=== PATIENT | female | born 2000 | race Hispanic/Latino ===

== ENCOUNTER 2023-08-28 08:56 | Emergency (ER) | payer OTHER, SELFPAY ==
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
[2023-08-28 09:05] VITALS: BP 110/73; PULSE 79; RESP 16; TEMP 36.3; O2SAT 100; BMI 21.2
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
[2023-08-28] MEDS: SODIUM CHLORIDE 0.9% 1,000 ML 1000 ML IV (11:39)
--- NOTE | 2023-08-28 11:39 | PC.NURSE ---
this RN stopped infusion so patient could go to CT with build technician.
[2023-08-28 11:44] LABS: Add Manual Diff / Slide Review NO; Basophils Absolute Auto 0 /uL (0-100); Basophils Percent Auto 0.6 % (0-2); Eosinophils Absolute Auto 0 /uL (0-450); Eosinophils Percent Auto 0.4 % (2-4); Hematocrit 35.6 % (36-46); Hemoglobin 12.1 g/dL (12.0-16.0); Lymphocytes Absolute Auto 1900 /uL (1100-4500); Lymphocytes Percent Auto 34.8 % (25-40); Mean Corpuscular HGB Conc 33.9 % (30-36); Mean Corpuscular Hemoglobin 28.8 PG (26-34); Monocytes Absolute Auto 600 /uL (0-900); Monocytes Percent Auto 10.8 % (3-14); Neutrophils Absolute Auto 2900 /uL (1500-7000); Neutrophils Percent Auto 53.4 % (50-75); Platelet Count 329 X10^3/uL (150-400); Red Blood Cell Count 4.19 X10^6/uL (4.0-5.2); Red Cell Distribution Width 14.9 % (11.6-14.8); White Blood Cell Count 5.4 X10^3/uL (4.5-11.0)
[2023-08-28 12:01] LABS: Pregnancy Test Serum,Qual Negative (Negative)
[2023-08-28 12:02] LABS: Alanine Aminotransferase 20 IU/L (<35); Albumin 4.2 g/dL (3.5-5.0); Albumin Globulin Ratio 1.4 (1.0-2.8); Alkaline Phosphatase 50 U/L (38-126); Aspartate Aminotransferase 25 IU/L (14-36); BUN Creatinine Ratio 12.3 (6-22); Blood Urea Nitrogen 7 mg/dL (7-17); Calcium 8.7 mg/dL (8.4-10.2); Carbon Dioxide 25 mmol/L (22-32); Chloride 110 mmol/L (98-107); Estimated Glomerular Filt Rate > 60 mL/min (>60); Globulin 3.1 g/dL (1.7-4.1); Glucose 83 mg/dL (70-100); HEMOLYSIS < 15 (0-50); Lipase 56 U/L (23-300); Potassium 3.5 mmol/L (3.4-5.1); Sodium 139 mmol/L (137-145); Total Protein 7.3 g/dL (6.3-8.2)
[2023-08-28 12:08] VITALS: BP 115/74; PULSE 75; RESP 16; TEMP 36.6; O2SAT 100
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
[2023-08-28 13:13] VITALS: BP 109/72; PULSE 79; RESP 16; O2SAT 100
== END 2023-08-28 13:19 | disposition home or self-care (01) ==
PROVIDERS: Emergency Provider Emergency Medicine
DX: S06.0X0A Concussion without loss of consciousness, initial encounter (principal); S90.32XA Contusion of left foot, initial encounter; S80.12XA Contusion of left lower leg, initial encounter; R10.2 Pelvic and perineal pain; M54.2 Cervicalgia; V89.2XXA Person injured in unspecified motor-vehicle accident, traffic, initial encounter
CPT/HCPCS: 36415; 70450; 71275; 72125; 73590; 73630; 74177; 80053; 81003; 81025; 83690; 84703; 85025; 99284; Q9967